=== PATIENT | female | born 2000 | race Caucasian/White ===

== ENCOUNTER 2020-07-30 14:32 | Emergency (ER) | payer BC ==
--- NOTE | 2020-07-30 16:21 | ED ---
Overdose HPI - General Chief Complaint: Recheck/Abnormal Lab/Rx Stated Complaint: overdose Time Seen by Provider: 07/30/20 15:27 Source: patient, RN notes reviewed, old records reviewed Mode of arrival: EMS Limitations: no limitations - History of Present Illness Initial Comments: This is a 20-year-old female accidental overdose fentanyl overdose given Narcan. Patient denying suicidal thoughts, denying suicide attempt. Patient has no other drug or alcohol abuse today MD Complaint: accidental overdose -: minutes(s) Intent: unwilling to say, other (Patient refusing to participating question taking) How Overdose Was Discovered: called 911 Context: Intentional Overdose: drug/ETOH problems Context: Accidental Overdose: wanted to get high Treatments Prior to Arrival: narcan - Related Data Home Medications Medication Instructions Recorded Confirmed No Known Home Medications 07/30/20 07/30/20 Allergies Allergy/AdvReac Type Severity Reaction Status Date / Time codeine Allergy Unknown Verified 07/30/20 16:12 Review of Systems ROS Statement: Those systems with pertinent positive or pertinent negative responses have been documented in the HPI. ROS Other: All systems not noted in ROS Statement are negative. Past Medical History Past Medical History: No Reported History History of Any Multi-Drug Resistant Organisms: None Reported Past Surgical History: No Surgical Hx Reported Past Psychological History: Unable to Obtain Smoking Status: Current every day smoker Past Alcohol Use History: None Reported Past Drug Use History: Cocaine, Heroin, Marijuana General Exam Limitations: no limitations General appearance: alert, in no apparent distress Head exam: Present: atraumatic, normocephalic, normal inspection Eye exam: Present: normal appearance, PERRL, EOMI. Absent: scleral icterus, conjunctival injection, periorbital swelling ENT exam: Present: normal exam, mucous membranes moist Neck exam: Present: normal inspection. Absent: tenderness, meningismus, lymphadenopathy Respiratory exam: Present: normal lung sounds bilaterally. Absent: respiratory distress, wheezes, rales, rhonchi, stridor Cardiovascular Exam: Present: regular rate, normal rhythm, normal heart sounds. Absent: systolic murmur, diastolic murmur, rubs, gallop, clicks GI/Abdominal exam: Present: soft, normal bowel sounds. Absent: distended, tenderness, guarding, rebound, rigid Extremities exam: Present: normal inspection, full ROM, normal capillary refill. Absent: tenderness, pedal edema, joint swelling, calf tenderness Back exam: Present: normal inspection Neurological exam: Present: alert, oriented X3, CN II-XII intact Psychiatric exam: Present: normal affect, normal mood Skin exam: Present: warm, dry, intact, normal color. Absent: rash Course Vital Signs 07/30/20 14:40 Temperature 99.0 F Pulse Rate 89 Respiratory 14 Rate Blood Pressure 102/69 O2 Sat by Pulse 100 Oximetry - Reevaluation(s) Reevaluation #1: 07/30/20 16:37 medical records reviewed Reevaluation #2: 07/30/20 16:37 Patient was given Narcan Narcan spoke patient would like to go back to [place] Medical Decision Making - Medical Decision Making 20 female DF for suspected opiate overdose patient admits fentanyl abuse. Patient to be discharged home in the neck to [place] Disposition Clinical Impression: Drug overdose Disposition: HOME SELF-CARE Condition: Fair Instructions (If sedation given, give patient instructions): Narcotic Use Disorder (ED), Opioid Use Disorder (ED) Is patient prescribed a controlled substance at d/c from ED?: No Referrals: None,Stated [Primary Care Provider] - 1-2 days
[2020-07-30 16:43] VITALS: BP 105/78; PULSE 78; RESP 16; TEMP 97.8
== END 2020-07-30 16:41 | disposition home or self-care (01) ==
LOC: EC 14:32
DX: T40.411A Poisoning by fentanyl or fentanyl analogs, accidental (unintentional), initial encounter (principal); F17.200 Nicotine dependence, unspecified, uncomplicated; Z88.5 Allergy status to narcotic agent
CPT/HCPCS: 99284